=== PATIENT | female | born 1975 | race Caucasian/White ===

== ENCOUNTER 2024-03-16 10:28 | Outpatient (OUT) | payer OTHER, SELFPAY ==
--- NOTE | 2024-03-16 | XR_ITS ---
The [address] [address] Patient Name: JOHN GALARZA MRN: [id number] date: 1975 Sex: F Assigned Patient Location: Current Patient Location: Accession/Order Number: [id number] Exam Date: 03/16/2024 10:40 Report Date: 03/16/2024 14:35 At the request of: KASSIE PRATER Procedure: XR foot BRANDI min 3V EXAMINATION: XR foot BRANDI min 3V HISTORY: BILATERAL FOOT PAIN COMPARISON: No relevant comparison available. FINDINGS: RIGHT FINDINGS: BONES: No acute fracture or dislocation. Mild hallux valgus with mild first metatarsal-phalangeal joint osteoarthritis . Mild enthesopathic spurring plantar calcaneus SOFT TISSUES: Negative. No visible soft tissue swelling. OTHER: Negative. LEFT FINDINGS: BONES: No acute fracture or dislocation. Moderate hallux valgus with mild to moderate first metatarsal-phalangeal joint osteoarthritis. Mild calcaneal enthesopathy at the Achilles and plantar insertions SOFT TISSUES: Negative. No visible soft tissue swelling. OTHER: Negative. 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
== END 2024-03-16 10:29 | disposition home or self-care (01) ==
LOC: EC 10:28
PROVIDERS: Visit Provider Podiatrist Foot & Ankle Surgery
DX: M79.672 Pain in left foot (principal); M79.671 Pain in right foot; M20.12 Hallux valgus (acquired), left foot; M20.11 Hallux valgus (acquired), right foot
CPT/HCPCS: 73630